=== PATIENT | male | born 1985 | race Caucasian/White ===

== ENCOUNTER 2025-03-28 00:52 | Emergency (ER) | payer BC ==
[~2025-03-28] VITALS: Ht 177.8 cm; Wt 95.3 kg
[2025-03-28] MEDS: IV NS 0.9% 1,000 ML BAG IV ONE (01:28)
[2025-03-28] MEDS ORDERED: IV NS 0.9% 250 ML IV ONE (01:32)
[2025-03-28] MEDS ORDERED: IOHEXOL-300 100 ML VIAL IV ONE (01:32)
[2025-03-28] MEDS ORDERED: CT SWABBABLE VALVE TRANS SET 1 EA INFUS.SET MC ONE (01:32)
[2025-03-28 01:42] LABS: PLATELET COUNT (AUTO) 269 K/uL (150-450); RED BLOOD CELL COUNT(AUTO) 5.43 MIL/uL (4.5-6.0); RED CELL DISTRIBUTION WIDTH 13.0 % (11.5-15.0); WHITE BLOOD COUNT (AUTO) 17.4 K/uL (4.3-11.0)
[2025-03-28 01:48] LABS: CALCIUM, SERUM 8.7 mg/dL (8.5-10.1); CREATININE 1.1 mg/dL (0.6-1.3); SODIUM SERUM 134.0 mmol/L (136-145); UREA NITROGEN, BLOOD 14.0 mg/dL (7-18)
[2025-03-28 01:53] LABS: ASPARTATE AMINOTRANSFERASE 13.0 U/L (15-37); TOTAL PROTEIN, SERUM 7.8 g/dL (6.4-8.2)
[2025-03-28 01:55] LABS: LACTIC ACID 1.0 mmol/L (0.4-2.0)
[2025-03-28] MEDS ORDERED: METR-147 PO (02:48)
[2025-03-28] MEDS ORDERED: KETO10TA2 PO (02:48)
[2025-03-28] MEDS ORDERED: ONDA4TAB11 PO (02:48)
[2025-03-28] MEDS ORDERED: CIPR500T5 PO (02:48)
[2025-03-28] MEDS ORDERED: KETOROLAC TROMETHAMINE INJ 30 MG/ML VIAL ONE (02:51)
[2025-03-28] MEDS: KETOROLAC TROMETHAMINE INJ 30 MG/ML VIAL IV ONE (02:53)
[2025-03-28 03:06] VITALS: BP 142/87; TEMP 98.4; O2SAT 97
[2025-03-29] MEDS ORDERED: METR-147 PO (08:29)
[2025-03-29] MEDS ORDERED: KETO10TA2 PO (08:29)
[2025-03-29] MEDS ORDERED: TRAZ-182 PO (08:29)
[2025-03-29] MEDS ORDERED: FLUO40CA49 PO (08:29)
[2025-03-29] MEDS ORDERED: ONDA-97 PO (08:29)
[2025-03-29] MEDS ORDERED: PROP20TA19 PO (08:29)
[2025-03-29] MEDS ORDERED: MELA1TAB47 PO (08:29)
[2025-03-29] MEDS ORDERED: CIPR500T5 PO (08:29)
== END 2025-03-28 03:06 | disposition home or self-care (01) ==
LOC: ER 00:59
DX: K57.32 Diverticulitis of large intestine without perforation or abscess without bleeding (principal); K59.00 Constipation, unspecified; R10.9 Unspecified abdominal pain; F41.9 Anxiety disorder, unspecified; Z60.2 Problems related to living alone
CPT/HCPCS: 99285; 74177; 96374; 96361; 85025; 80048; 83605; 83690; 80076; 36415; J1885; J7030; J7050; Q9967

== ENCOUNTER 2025-03-28 19:34 | Inpatient (IN) | payer BC ==
[~2025-03-28] VITALS: Ht 177.8 cm; Wt 82.1 kg
[~2025-03-28 19:34] MED LIST: CIPR500T5 PO; KETO10TA2 PO; METR-147 PO; ONDA4TAB11 PO
[2025-03-28] MEDS ORDERED: MORPHINE SULFATE INJ 4 MG/ML DISP.SYRIN ONE (23:24)
[2025-03-28] MEDS: MORPHINE SULFATE INJ 2 MG/ML DISP.SYRIN IV ONE (23:46)
[2025-03-28] MEDS: IV LR 1000 ML 1,000 ML BAG IV ONE (23:49)
[2025-03-28] MEDS ORDERED: IV NS 0.9% 250 ML IV ONE (23:56)
[2025-03-28] MEDS ORDERED: IOHEXOL-300 100 ML VIAL IV ONE (23:56)
[2025-03-29 00:12] LABS: CALCIUM, SERUM 8.7 mg/dL (8.5-10.1); CREATININE 1.3 mg/dL (0.6-1.3); SODIUM SERUM 135.0 mmol/L (136-145); UREA NITROGEN, BLOOD 23.0 mg/dL (7-18)
[2025-03-29 00:18] LABS: ASPARTATE AMINOTRANSFERASE 15.0 U/L (15-37); TOTAL PROTEIN, SERUM 7.7 g/dL (6.4-8.2)
[2025-03-29 00:48] LABS: PLATELET COUNT (AUTO) 214 K/uL (150-450); RED BLOOD CELL COUNT(AUTO) 4.86 MIL/uL (4.5-6.0); RED CELL DISTRIBUTION WIDTH 13.4 % (11.5-15.0); WHITE BLOOD COUNT (AUTO) 10.6 K/uL (4.3-11.0)
[2025-03-29] MEDS ORDERED: ACETAMINOPHEN 650 MG/SUPP.RECT RC PRN (01:30)
[2025-03-29] MEDS ORDERED: PIPERACI/TAZO 3.375GM/D5W 50ML PB IV ONE (01:30)
[2025-03-29] MEDS ORDERED: MORPHINE SULFATE INJ 4 MG/ML DISP.SYRIN ONE (01:30)
[2025-03-29 01:52] LABS: PHOSPHORUS 2.5 mg/dL (2.5-4.9)
[2025-03-29] MEDS: PIPERACILLIN /TAZOBACTAM 3.375 G in IV D5W 50 ML IV ONE (01:58)
[2025-03-29] MEDS: MORPHINE SULFATE INJ 2 MG/ML DISP.SYRIN IV ONE (01:58)
[2025-03-29 03:10] VITALS: BP 113/92; TEMP 98.2; O2SAT 98
[2025-03-29 03:20] VITALS: BP_SYST 92; TEMP 98.2; O2SAT 98
[2025-03-29] MEDS: IV D5/ 0.9% NACL 1,000 ML IV PRN (03:27)
[2025-03-29] MEDS: MORPHINE SULFATE INJ 2 MG/ML DISP.SYRIN IV PRN ×2 (06:43→23:00)
[2025-03-29 07:30] VITALS: BP 127/75; TEMP 99.1; O2SAT 93
[2025-03-29] MEDS: PIPERACILLIN /TAZOBACTAM 3.375 G in IV D5W 50 ML IV SCH (08:25)
[2025-03-29] MEDS: PANTOPRAZOLE 40 MG VIAL IV SCH (08:25)
[2025-03-29] MEDS ORDERED: MELA1TAB47 PO (08:29)
[2025-03-29] MEDS ORDERED: ONDA-97 PO (08:29)
[2025-03-29] MEDS ORDERED: TRAZ-182 PO (08:29)
[2025-03-29] MEDS ORDERED: KETO10TA2 PO (08:29)
[2025-03-29] MEDS ORDERED: METR-147 PO (08:29)
[2025-03-29] MEDS ORDERED: CIPR500T5 PO (08:29)
[2025-03-29] MEDS ORDERED: FLUO40CA49 PO (08:29)
[2025-03-29] MEDS ORDERED: PROP20TA19 PO (08:29)
[2025-03-29 16:00] VITALS: BP 123/78; TEMP 98.2; O2SAT 94
[2025-03-29 20:00] VITALS: BP 121/66; TEMP 99.3; O2SAT 98
[2025-03-30 06:01] LABS: CALCIUM, SERUM 8.5 mg/dL (8.5-10.1); CREATININE 1.1 mg/dL (0.6-1.3); SODIUM SERUM 137.0 mmol/L (136-145); UREA NITROGEN, BLOOD 17.0 mg/dL (7-18)
[2025-03-30 06:02] LABS: PLATELET COUNT (AUTO) 241 K/uL (150-450); RED BLOOD CELL COUNT(AUTO) 4.42 MIL/uL (4.5-6.0); RED CELL DISTRIBUTION WIDTH 13.1 % (11.5-15.0); WHITE BLOOD COUNT (AUTO) 10.2 K/uL (4.3-11.0)
[2025-03-30 08:11] VITALS: BP 129/78; TEMP 98.4; O2SAT 96
[2025-03-30] MEDS: FLUOXETINE HCL 20 MG CAPSULE PO SCH (12:01)
[2025-03-30] MEDS: ONDANSETRON HCL/PF 4 MG/2 ML VIAL IVP PRN (12:05)
[2025-03-30 16:18] VITALS: BP 132/86; TEMP 99.1; O2SAT 95
[2025-03-30 20:00] VITALS: BP 144/88; TEMP 99; O2SAT 97
[2025-03-30] MEDS: TRAZODONE 50 MG TABLET PO SCH (23:18)
[2025-03-31 07:30] VITALS: BP 135/85; TEMP 99.1; O2SAT 94
[2025-03-31 08:18] LABS: PLATELET COUNT (AUTO) 249 K/uL (150-450); RED BLOOD CELL COUNT(AUTO) 4.30 MIL/uL (4.5-6.0); RED CELL DISTRIBUTION WIDTH 13.4 % (11.5-15.0); WHITE BLOOD COUNT (AUTO) 10.8 K/uL (4.3-11.0)
[2025-03-31 08:32] LABS: CALCIUM, SERUM 8.3 mg/dL (8.5-10.1); CREATININE 1.1 mg/dL (0.6-1.3); SODIUM SERUM 137.0 mmol/L (136-145); UREA NITROGEN, BLOOD 13.0 mg/dL (7-18)
[2025-03-31] MEDS: PROPRANOLOL HCL 40 MG TABLET PO SCH (10:38)
[2025-03-31] MEDS: MORPHINE SULFATE INJ 4 MG/ML DISP.SYRIN IV PRN (11:53)
[2025-03-31 16:00] VITALS: BP 125/88; TEMP 98.2; O2SAT 94
[2025-03-31 20:31] VITALS: BP 128/84; TEMP 98.1; O2SAT 95
[2025-04-01 06:10] LABS: PLATELET COUNT (AUTO) 326 K/uL (150-450); RED BLOOD CELL COUNT(AUTO) 4.77 MIL/uL (4.5-6.0); RED CELL DISTRIBUTION WIDTH 13.2 % (11.5-15.0); WHITE BLOOD COUNT (AUTO) 12.1 K/uL (4.3-11.0)
[2025-04-01 06:47] LABS: CALCIUM, SERUM 8.6 mg/dL (8.5-10.1); CREATININE 1.2 mg/dL (0.6-1.3); SODIUM SERUM 140.0 mmol/L (136-145); UREA NITROGEN, BLOOD 12.0 mg/dL (7-18)
[2025-04-01 08:00] VITALS: BP 123/79; TEMP 98.6; O2SAT 99
[2025-04-01] MEDS: PANTOPRAZOLE 40 MG TABLET.DR PO SCH (08:35)
[2025-04-01 16:00] VITALS: BP 120/79; TEMP 98.2; O2SAT 95
[2025-04-01 20:00] VITALS: BP 128/81; TEMP 98.2; O2SAT 96
[2025-04-01 20:52] VITALS: BP 128/81; TEMP 98.2; O2SAT 96
[2025-04-02 06:35] LABS: PLATELET COUNT (AUTO) 349 K/uL (150-450); RED BLOOD CELL COUNT(AUTO) 4.80 MIL/uL (4.5-6.0); RED CELL DISTRIBUTION WIDTH 13.2 % (11.5-15.0); WHITE BLOOD COUNT (AUTO) 12.4 K/uL (4.3-11.0)
[2025-04-02 06:47] LABS: CALCIUM, SERUM 8.8 mg/dL (8.5-10.1); CREATININE 1.1 mg/dL (0.6-1.3); SODIUM SERUM 142.0 mmol/L (136-145); UREA NITROGEN, BLOOD 14.0 mg/dL (7-18)
[2025-04-02 08:00] VITALS: BP 118/69; TEMP 98.2; O2SAT 96
[2025-04-02 16:00] VITALS: BP 120/82; TEMP 97.9; O2SAT 96
[2025-04-02] MEDS ORDERED: DIATR MEGLU/DIATRIZOATE SODIUM 30 ML BOTTLE (GASTROGRAPHIN) ONE (18:48)
[2025-04-02 20:00] VITALS: BP 126/80; TEMP 97.9; O2SAT 97
[2025-04-02] MEDS ORDERED: IOHEXOL-300 100 ML VIAL IV ONE (20:59)
[2025-04-02] MEDS ORDERED: IV NS 0.9% 250 ML IV ONE (20:59)
[2025-04-03 03:52] VITALS: BP 143/92; TEMP 97.7; O2SAT 95
[2025-04-03 05:49] LABS: PLATELET COUNT (AUTO) 443 K/uL (150-450); RED BLOOD CELL COUNT(AUTO) 4.93 MIL/uL (4.5-6.0); RED CELL DISTRIBUTION WIDTH 13.4 % (11.5-15.0); WHITE BLOOD COUNT (AUTO) 13.9 K/uL (4.3-11.0)
[2025-04-03 06:00] LABS: CALCIUM, SERUM 8.5 mg/dL (8.5-10.1); CREATININE 0.9 mg/dL (0.6-1.3); SODIUM SERUM 142.0 mmol/L (136-145); UREA NITROGEN, BLOOD 13.0 mg/dL (7-18)
[2025-04-03 07:30] VITALS: BP 144/97; TEMP 97.7; O2SAT 94
[2025-04-03] MEDS ORDERED: MIDAZOLAM HCL 2 MG/2ML VIAL ONE (12:38)
[2025-04-03] MEDS ORDERED: SUGAMMADEX SODIUM 200 MG/2 ML VIAL IV ONE (12:38)
[2025-04-03] MEDS ORDERED: FENTANYL PF 100MCG/2ML AMPUL ONE ×2 (12:38→15:02)
[2025-04-03] MEDS ORDERED: BUPIVACAINE 0.5 % PF 150 MG/30 ML VIAL ONE (13:13)
[2025-04-03] MEDS ORDERED: LIDOCAINE 1%-EPI 1:100,000 20 ML VIAL ONE (13:13)
[2025-04-03] MEDS: PIPERACILLIN /TAZOBACTAM 3.375 G in IV D5W 100 ML IV SCH (14:00)
[2025-04-03 16:00] VITALS: BP 120/81; TEMP 97.5; O2SAT 91
[2025-04-03 20:14] VITALS: BP 135/83; TEMP 97.9; O2SAT 95
[2025-04-04 06:08] LABS: PLATELET COUNT (AUTO) 413 K/uL (150-450); RED BLOOD CELL COUNT(AUTO) 4.74 MIL/uL (4.5-6.0); RED CELL DISTRIBUTION WIDTH 13.3 % (11.5-15.0); WHITE BLOOD COUNT (AUTO) 11.6 K/uL (4.3-11.0)
[2025-04-04 06:21] LABS: ASPARTATE AMINOTRANSFERASE 18.0 U/L (15-37); CALCIUM, SERUM 8.2 mg/dL (8.5-10.1); CREATININE 1.2 mg/dL (0.6-1.3); SODIUM SERUM 143.0 mmol/L (136-145); TOTAL PROTEIN, SERUM 6.6 g/dL (6.4-8.2); UREA NITROGEN, BLOOD 13.0 mg/dL (7-18)
[2025-04-04 09:11] VITALS: BP 123/80; TEMP 98.4; O2SAT 97
[2025-04-04 17:34] VITALS: BP 125/87; TEMP 97.3; O2SAT 97
[2025-04-04 20:00] VITALS: BP 132/85; TEMP 98.1; O2SAT 96
[2025-04-05 07:30] VITALS: BP 128/93; TEMP 97.7; O2SAT 97
[2025-04-05 11:22] LABS: PLATELET COUNT (AUTO) 393 K/uL (150-450); RED BLOOD CELL COUNT(AUTO) 4.54 MIL/uL (4.5-6.0); RED CELL DISTRIBUTION WIDTH 13.5 % (11.5-15.0); WHITE BLOOD COUNT (AUTO) 11.1 K/uL (4.3-11.0)
[2025-04-05 11:29] LABS: CALCIUM, SERUM 7.8 mg/dL (8.5-10.1); CREATININE 1.1 mg/dL (0.6-1.3); SODIUM SERUM 139.0 mmol/L (136-145); UREA NITROGEN, BLOOD 9.0 mg/dL (7-18)
[2025-04-05 16:00] VITALS: BP 141/86; TEMP 98.2; O2SAT 96
[2025-04-05] MEDS ORDERED: TPN/PPN PER PHARMACY IV PRN (16:30)
[2025-04-05 20:00] VITALS: BP 140/96; TEMP 98.2; O2SAT 97
[2025-04-05] MEDS: PPN #1 IV SCH (22:58)
[2025-04-06 06:58] LABS: CALCIUM, SERUM 8.2 mg/dL (8.5-10.1); CREATININE 0.9 mg/dL (0.6-1.3); PHOSPHORUS 3.4 mg/dL (2.5-4.9); SODIUM SERUM 142.0 mmol/L (136-145); UREA NITROGEN, BLOOD 8.0 mg/dL (7-18)
[2025-04-06 07:01] LABS: LDL 107.0 mg/dL (0-99)
[2025-04-06 08:00] VITALS: BP 139/98; TEMP 97.5; O2SAT 94
[2025-04-06 09:18] LABS: PLATELET COUNT (AUTO) 401 K/uL (150-450); RED BLOOD CELL COUNT(AUTO) 4.72 MIL/uL (4.5-6.0); RED CELL DISTRIBUTION WIDTH 13.6 % (11.5-15.0); WHITE BLOOD COUNT (AUTO) 10.9 K/uL (4.3-11.0)
[2025-04-06] MEDS ORDERED: Potassium Chloride 10 MEQ in IV D5W 50 ML IV SCH (12:00)
[2025-04-06] MEDS ORDERED: DEXTROSE 50%-WATER 50 ML DISP.SYRIN IV PRN (12:00)
[2025-04-06] MEDS: BLOOD SUGAR DIAGNOSTIC 1 EACH STRIP IN SCH (12:07)
[2025-04-06] MEDS: POTASSIUM CL. PREMIX PERIPHER. 50 ML IV SCH (12:18)
[2025-04-06] MEDS: IV D5/ 0.9% NACL 1,000 ML IV SCH ×2 (13:32→18:17)
[2025-04-06 16:00] VITALS: BP 119/90; TEMP 97.5; O2SAT 97
[2025-04-06] MEDS: FAT EMULSION 20% 500 ML in PREMIX 1 EA IV SCH (16:12)
[2025-04-06] MEDS: TPN BAG #1 IV SCH (18:16)
[2025-04-06 20:00] VITALS: BP 131/84; TEMP 97.3; O2SAT 98
[2025-04-07] MEDS: INSULIN REGULAR, HUMAN 100 UNIT/ML 3 ML VIAL SQ PRN (00:01)
[2025-04-07 07:30] VITALS: BP 133/92; TEMP 97.7; O2SAT 96
[2025-04-07 07:36] LABS: CALCIUM, SERUM 8.3 mg/dL (8.5-10.1); CREATININE 1.2 mg/dL (0.6-1.3); PHOSPHORUS 2.8 mg/dL (2.5-4.9); SODIUM SERUM 140.0 mmol/L (136-145); UREA NITROGEN, BLOOD 14.0 mg/dL (7-18)
[2025-04-07] MEDS: ENOXAPARIN SODIUM 40 MG/0.4 ML DISP.SYRIN SQ SCH (09:30)
[2025-04-07 20:00] VITALS: BP 128/97; TEMP 97.7; O2SAT 97
[2025-04-08 06:40] LABS: CALCIUM, SERUM 8.3 mg/dL (8.5-10.1); CREATININE 1.3 mg/dL (0.6-1.3); PHOSPHORUS 3.3 mg/dL (2.5-4.9); SODIUM SERUM 140.0 mmol/L (136-145); UREA NITROGEN, BLOOD 10.0 mg/dL (7-18)
[2025-04-08 07:58] LABS: PLATELET COUNT (AUTO) 347 K/uL (150-450); RED BLOOD CELL COUNT(AUTO) 4.60 MIL/uL (4.5-6.0); RED CELL DISTRIBUTION WIDTH 13.2 % (11.5-15.0); WHITE BLOOD COUNT (AUTO) 10.0 K/uL (4.3-11.0)
[2025-04-08 08:00] VITALS: BP 112/76; TEMP 97.5; O2SAT 98
[2025-04-08] MEDS: TPN BAG #2 IV SCH (10:27)
[2025-04-08 16:00] VITALS: BP 117/79; TEMP 97.7; O2SAT 98
[2025-04-08 20:00] VITALS: BP 117/80; TEMP 97.7; O2SAT 96
[2025-04-09 06:28] LABS: CALCIUM, SERUM 8.3 mg/dL (8.5-10.1); CREATININE 1.1 mg/dL (0.6-1.3); PHOSPHORUS 3.1 mg/dL (2.5-4.9); SODIUM SERUM 139.0 mmol/L (136-145); UREA NITROGEN, BLOOD 10.0 mg/dL (7-18)
[2025-04-09 06:37] VITALS: BP 110/77
[2025-04-09 07:00] VITALS: BP 120/67; TEMP 97.7; O2SAT 100
[2025-04-09] MEDS: POTASSIUM CHLORIDE 20 MEQ TAB.PRT.SR PO SCH (10:19)
[2025-04-09] MEDS: POTASSIUM CL. PREMIX PERIPHER. 50 ML IV SCH (14:24)
[2025-04-09] MEDS ORDERED: DIATR MEGLU/DIATRIZOATE SODIUM 120 ML BOTTLE (GASTROGRAPHIN) ONE (15:10)
[2025-04-09 20:00] VITALS: BP 121/82; TEMP 98.1; O2SAT 94
[2025-04-09] MEDS: TPN BAG #3 IV SCH (20:04)
[2025-04-10 05:58] LABS: PLATELET COUNT (AUTO) 422 K/uL (150-450); RED BLOOD CELL COUNT(AUTO) 5.33 MIL/uL (4.5-6.0); RED CELL DISTRIBUTION WIDTH 13.4 % (11.5-15.0); WHITE BLOOD COUNT (AUTO) 15.3 K/uL (4.3-11.0)
[2025-04-10 06:01] LABS: ASPARTATE AMINOTRANSFERASE 53.0 U/L (15-37); CALCIUM, SERUM 9.0 mg/dL (8.5-10.1); CREATININE 1.2 mg/dL (0.6-1.3); PHOSPHORUS 3.3 mg/dL (2.5-4.9); SODIUM SERUM 138.0 mmol/L (136-145); TOTAL PROTEIN, SERUM 8.1 g/dL (6.4-8.2); UREA NITROGEN, BLOOD 15.0 mg/dL (7-18)
[2025-04-10 08:00] VITALS: BP 127/90; TEMP 97.9; O2SAT 99
[2025-04-10 16:00] VITALS: BP 117/95; TEMP 98.1; O2SAT 98
[2025-04-10 20:00] VITALS: BP 118/88; TEMP 97.9; O2SAT 94
[2025-04-11] MEDS: TPN BAG #4 IV SCH (05:28)
[2025-04-11 05:58] LABS: PLATELET COUNT (AUTO) 382 K/uL (150-450); RED BLOOD CELL COUNT(AUTO) 5.25 MIL/uL (4.5-6.0); RED CELL DISTRIBUTION WIDTH 13.1 % (11.5-15.0); WHITE BLOOD COUNT (AUTO) 12.9 K/uL (4.3-11.0)
[2025-04-11 06:14] LABS: CALCIUM, SERUM 8.6 mg/dL (8.5-10.1); CREATININE 1.2 mg/dL (0.6-1.3); PHOSPHORUS 2.7 mg/dL (2.5-4.9); SODIUM SERUM 135.0 mmol/L (136-145); UREA NITROGEN, BLOOD 14.0 mg/dL (7-18)
[2025-04-11 08:00] VITALS: BP 109/82; TEMP 97.7; O2SAT 99
[2025-04-11] MEDS: POTASSIUM CHLORIDE 20 MEQ POWDER PACKET PO ONE ×2 (09:54→09:55)
[2025-04-11 16:00] VITALS: BP 112/78; TEMP 97.3; O2SAT 96
[2025-04-11 20:00] VITALS: BP 119/86; TEMP 97.5; O2SAT 97
[2025-04-12 03:11] VITALS: BP 111/95; TEMP 97.9; O2SAT 93
[2025-04-12 06:26] LABS: PLATELET COUNT (AUTO) 368 K/uL (150-450); RED BLOOD CELL COUNT(AUTO) 5.35 MIL/uL (4.5-6.0); RED CELL DISTRIBUTION WIDTH 13.2 % (11.5-15.0); WHITE BLOOD COUNT (AUTO) 12.7 K/uL (4.3-11.0)
[2025-04-12 06:38] LABS: CALCIUM, SERUM 8.8 mg/dL (8.5-10.1); CREATININE 1.3 mg/dL (0.6-1.3); PHOSPHORUS 3.2 mg/dL (2.5-4.9); SODIUM SERUM 135.0 mmol/L (136-145); UREA NITROGEN, BLOOD 18.0 mg/dL (7-18)
[2025-04-12 07:30] VITALS: BP 118/87; TEMP 97.7; O2SAT 95
[2025-04-12] MEDS: POTASSIUM CHLORIDE 20 MEQ POWDER PACKET PO ONE (12:12)
[2025-04-12] MEDS: TPN BAG #5 IV SCH (12:13)
[2025-04-12 20:00] VITALS: BP 111/95; TEMP 97.9; O2SAT 100
[2025-04-12] MEDS: ACETAMINOPHEN 325 MG TABLET PO PRN (23:16)
[2025-04-13 06:24] LABS: PLATELET COUNT (AUTO) 361 K/uL (150-450); RED BLOOD CELL COUNT(AUTO) 5.28 MIL/uL (4.5-6.0); RED CELL DISTRIBUTION WIDTH 13.0 % (11.5-15.0); WHITE BLOOD COUNT (AUTO) 12.8 K/uL (4.3-11.0)
[2025-04-13 06:37] LABS: CALCIUM, SERUM 8.8 mg/dL (8.5-10.1); CREATININE 1.2 mg/dL (0.6-1.3); SODIUM SERUM 138.0 mmol/L (136-145); UREA NITROGEN, BLOOD 17.0 mg/dL (7-18)
[2025-04-13 06:41] LABS: PHOSPHORUS 3.4 mg/dL (2.5-4.9)
[2025-04-13 08:30] VITALS: BP 102/70; TEMP 97.5; O2SAT 95
[2025-04-13] MEDS: POTASSIUM CL. PREMIX PERIPHER. 50 ML IV SCH (10:02)
[2025-04-13] MEDS: TPN BAG #6 IV SCH (12:35)
[2025-04-13] MEDS ORDERED: DIATR MEGLU/DIATRIZOATE SODIUM 30 ML BOTTLE (GASTROGRAPHIN) ONE (15:07)
[2025-04-13 16:10] VITALS: BP 116/86; TEMP 97.7; O2SAT 94
[2025-04-13] MEDS: MENTHOL/CETYLPYRD (CEPACOL) 1 LOZ LOZENGE PO PRN (17:32)
[2025-04-13] MEDS ORDERED: IOHEXOL-300 100 ML VIAL IV ONE (18:02)
[2025-04-13] MEDS ORDERED: IV NS 0.9% 250 ML IV ONE (18:02)
[2025-04-13 20:00] VITALS: BP 111/87; TEMP 97.9; O2SAT 95
[2025-04-13] MEDS ORDERED: POTASSIUM CL. PREMIX PERIPHER. 50 ML IV SCH (20:00)
[2025-04-14 07:29] LABS: PLATELET COUNT (AUTO) 349 K/uL (150-450); RED BLOOD CELL COUNT(AUTO) 5.01 MIL/uL (4.5-6.0); RED CELL DISTRIBUTION WIDTH 13.5 % (11.5-15.0); WHITE BLOOD COUNT (AUTO) 12.0 K/uL (4.3-11.0)
[2025-04-14 08:00] VITALS: BP 118/90; TEMP 97.7; O2SAT 94
[2025-04-14 08:02] LABS: CALCIUM, SERUM 9.0 mg/dL (8.5-10.1); CREATININE 1.2 mg/dL (0.6-1.3); PHOSPHORUS 3.2 mg/dL (2.5-4.9); SODIUM SERUM 138.0 mmol/L (136-145); UREA NITROGEN, BLOOD 13.0 mg/dL (7-18)
[2025-04-14] MEDS: POTASSIUM CL. PREMIX PERIPHER. 50 ML IV SCH (09:36)
[2025-04-14] MEDS: TPN BAG #7 IV SCH (13:28)
[2025-04-14 16:00] VITALS: BP 133/93; TEMP 98.1; O2SAT 98
[2025-04-14 20:00] VITALS: BP 122/83; TEMP 98.4; O2SAT 98
[2025-04-14] MEDS: METOCLOPRAMIDE HCL 10 MG/2 ML VIAL IV SCH (20:40)
[2025-04-15 06:35] LABS: PLATELET COUNT (AUTO) 342 K/uL (150-450); RED BLOOD CELL COUNT(AUTO) 5.06 MIL/uL (4.5-6.0); RED CELL DISTRIBUTION WIDTH 13.4 % (11.5-15.0); WHITE BLOOD COUNT (AUTO) 10.1 K/uL (4.3-11.0)
[2025-04-15 06:55] LABS: CALCIUM, SERUM 9.1 mg/dL (8.5-10.1); CREATININE 1.1 mg/dL (0.6-1.3); PHOSPHORUS 3.6 mg/dL (2.5-4.9); SODIUM SERUM 139.0 mmol/L (136-145); UREA NITROGEN, BLOOD 13.0 mg/dL (7-18)
[2025-04-15 08:00] VITALS: BP 138/77; TEMP 97.7; O2SAT 93
[2025-04-15] MEDS: POTASSIUM CHLORIDE 20 MEQ POWDER PACKET PO ONE ×2 (11:40→12:10)
[2025-04-15] MEDS ORDERED: POTASSIUM CL. PREMIX PERIPHER. 50 ML IV SCH (12:00)
[2025-04-15] MEDS ORDERED: TPN BAG #8 IV SCH (13:00)
[2025-04-15 15:46] LABS: CALCIUM, SERUM 9.4 mg/dL (8.5-10.1); CREATININE 1.2 mg/dL (0.6-1.3); SODIUM SERUM 136.0 mmol/L (136-145); UREA NITROGEN, BLOOD 13.0 mg/dL (7-18)
[2025-04-15 20:00] VITALS: BP 106/81; TEMP 98.2; O2SAT 96
[2025-04-16 05:56] LABS: PLATELET COUNT (AUTO) 304 K/uL (150-450); RED BLOOD CELL COUNT(AUTO) 4.73 MIL/uL (4.5-6.0); RED CELL DISTRIBUTION WIDTH 13.4 % (11.5-15.0); WHITE BLOOD COUNT (AUTO) 10.5 K/uL (4.3-11.0)
[2025-04-16 06:05] LABS: CALCIUM, SERUM 8.3 mg/dL (8.5-10.1); CREATININE 1.1 mg/dL (0.6-1.3); PHOSPHORUS 3.6 mg/dL (2.5-4.9); SODIUM SERUM 140.0 mmol/L (136-145); UREA NITROGEN, BLOOD 12.0 mg/dL (7-18)
[2025-04-16 08:00] VITALS: BP 108/67; TEMP 98.1; O2SAT 96
[2025-04-16] MEDS ORDERED: TPN BAG #9 IV SCH (14:00)
[2025-04-16 16:00] VITALS: BP 118/74; TEMP 97.8; O2SAT 96
[2025-04-16 20:00] VITALS: BP 117/84; TEMP 98.1; O2SAT 97
[2025-04-17 06:57] LABS: PLATELET COUNT (AUTO) 281 K/uL (150-450); RED BLOOD CELL COUNT(AUTO) 4.58 MIL/uL (4.5-6.0); RED CELL DISTRIBUTION WIDTH 13.4 % (11.5-15.0); WHITE BLOOD COUNT (AUTO) 12.4 K/uL (4.3-11.0)
[2025-04-17 07:24] LABS: CALCIUM, SERUM 8.9 mg/dL (8.5-10.1); CREATININE 1.3 mg/dL (0.6-1.3); PHOSPHORUS 3.6 mg/dL (2.5-4.9); SODIUM SERUM 139.0 mmol/L (136-145); UREA NITROGEN, BLOOD 12.0 mg/dL (7-18)
[2025-04-17 08:00] VITALS: BP 112/79; TEMP 97.7; O2SAT 96
[2025-04-17 09:05] VITALS: BP 112/79
[2025-04-17] MEDS ORDERED: METR500T PO (12:12)
[2025-04-17] MEDS ORDERED: CEFP200T14 PO (12:12)
[2025-04-17] MEDS ORDERED: HYDR-3972 PO (12:12)
[2025-04-17] MEDS ORDERED: ONDA4TAB11 PO (12:12)
== END 2025-04-17 15:51 | disposition home or self-care (01) | DRG 344 ==
LOC: ER 19:36 → MED 03-29 02:35
PROVIDERS: ADMIT Internal Medicine; ATTEND Nurse Practitioner Family
PROC: 0D9N40Z Drainage of Sigmoid Colon with Drainage Device, Percutaneous Endoscopic Approach (ICD-10-PCS; principal; 2025-04-03 13:00)
PROC: 02HV33Z Insertion of Infusion Device into Superior Vena Cava, Percutaneous Approach (ICD-10-PCS; 2025-04-05)
PROC: B548ZZA Ultrasonography of Superior Vena Cava, Guidance (ICD-10-PCS; 2025-04-05)
DX: K57.20 Diverticulitis of large intestine with perforation and abscess without bleeding (principal); K65.8 Other peritonitis; K56.0 Paralytic ileus; I25.10 Atherosclerotic heart disease of native coronary artery without angina pectoris; F17.210 Nicotine dependence, cigarettes, uncomplicated; F32.A Depression, unspecified; F41.9 Anxiety disorder, unspecified; E87.6 Hypokalemia; E80.6 Other disorders of bilirubin metabolism; N43.3 Hydrocele, unspecified; E66.9 Obesity, unspecified; Z68.26 Body mass index [BMI] 26.0-26.9, adult; N45.3 Epididymo-orchitis
CPT/HCPCS: 36415; 71045-TC; 74018; 74250-TC; 76870-TC; 80048-TC; 80053-TC; 80061-TC; 80076-TC; 82040-TC; 82962-TC; 83690-TC; 83735-TC; 84100-TC; 84132-TC; 84134-TC; 84478-TC; 85025-TC; 85027-TC; 86850-TC; 87040-TC; 93970-TC; A4216; A4223; A6223; A6254; G0378; J1100; J1650; J1815; J1885; J2250; J2270; J2405; J2470; J2543; J2704; J2765; J3010; J3480; J3490; J7030; J7042; J7050; J7060; J7120; Q9963; Q9967